=== PATIENT | male | born 1950 | race American Indian/Alaskan Native ===

== ENCOUNTER 2019-12-24 12:43 | Emergency (ER) | payer MEDICARE ==
--- NOTE | 2019-12-24 13:06 | Emergency Department Report ---
HPI - General Chief Complaint: Tube Replacement Time Seen by Provider: 12/24/19 12:57 - HPI HPI: This is a 69-year-old male who presents to the emergency department via EMS from home with complaint of the tracheostomy starting to come out. Patient has a history of throat cancer and hypertension. He is a former smoker. The patient is also a very bad historian. When asked about the size of his tracheostomy or how long it has been "coming out", the patient says "I do not know." He has never been to this facility previously. He denies fever, chest pain, shortness of breath, back pain. ED Past Medical Hx - Medications Home Medications: Home Medications Medication Instructions Recorded Confirmed Last Taken Type Sulfamethoxazole/Trimethoprim 1 each PO BID #14 tablet 12/24/19 Unknown Rx [Bactrim DS TAB] ED Review of Systems ROS: Stated complaint: TRACH PULLED OUT Other details as noted in HPI Comment: All other systems reviewed and negative ENT: other (tracheostomy coming out) Respiratory: denies: shortness of breath, wheezing Cardiovascular: denies: chest pain, palpitations Gastrointestinal: denies: abdominal pain, vomiting Neurological: denies: headache Physical Exam - Physical Exam Physical Exam: GENERAL: The patient is well-developed well-nourished. HENT: Normocephalic. Atraumatic. Patient has moist mucous membranes. EYES: Extraocular motions are intact. NECK: Supple. Trachea is midline. The tracheostomy has started to dislodge. CHEST/LUNGS: Clear to auscultation. There is no respiratory distress noted. HEART/CARDIOVASCULAR: Regular. There is no tachycardia. ABDOMEN: Abdomen is soft, nontender. Patient has normal bowel sounds. SKIN: Skin is warm and dry. NEURO: The patient is awake, alert, and oriented. The patient is cooperative. MUSCULOSKELETAL: There is no tenderness or deformity. ED Medical Decision Making - Radiology Data Radiology results: report reviewed CHEST 1 VIEW INDICATION / CLINICAL INFORMATION: trach placement. COMPARISON: None available. FINDINGS: SUPPORT DEVICES: Satisfactory position/appearance of the tracheostomy tube. HEART / MEDIASTINUM: No significant abnormality. LUNGS / PLEURA: Mild, chronic appearing interstitial changes. No significant pulmonary or parenchymal abnormality. No pneumothorax. ADDITIONAL FINDINGS: No significant additional findings. IMPRESSION: 1. No acute findings. 2. Satisfactory appearance of the tracheostomy tube. - Medical Decision Making This patient initially came in with a complaint that the tracheostomy tube has come out, or is coming out. Upon arrival the patient appears to have some mild dislodgment of the tracheostomy tube that is out about 1 inch from the stoma. We were able to get the tracheostomy tube flush against the stoma and tighten the trach collar. Chest x-ray shows appropriate placement of the tracheostomy tube and it does not show any pneumonia, pleural effusions, pneumothorax. The patient's vital signs have been reassuring throughout his ED course including being afebrile and no hypoxia. The inner cannula was cleaned by respiratory therapy but was malodorous with some concern that the patient could be developing a stoma infection. He will be placed on antibiotics and instructed to follow-up with primary care and/or otolaryngology. Critical Care Time: No Critical care attestation.: If time is entered above; I have spent that time in minutes in the direct care of this critically ill patient, excluding procedure time. ED Disposition Clinical Impression: Tracheostomy care, Tracheostomy, acute management Disposition: DC-01 TO HOME OR SELFCARE Is pt being admited?: No Condition: Stable Instructions: Tracheostomy Care (ED) Additional Instructions: Please follow-up with your primary care physician in the next few days. Return to the emergency department with any worsening of your symptoms, new or concerning symptoms not addressed during this current emergency department visit, or with any acute distress. Prescriptions: Sulfamethoxazole/Trimethoprim [Bactrim DS TAB] 1 each PO BID #14 tablet Referrals: PRIMARY CARE [Primary Care Provider] - 2-3 Days Time of Disposition: 14:40
--- NOTE | 2019-12-24 14:38 | XRay Report ---
CHEST 1 VIEW INDICATION / CLINICAL INFORMATION: trach placement. COMPARISON: None available. FINDINGS: SUPPORT DEVICES: Satisfactory position/appearance of the tracheostomy tube. HEART / MEDIASTINUM: No significant abnormality. LUNGS / PLEURA: Mild, chronic appearing interstitial changes. No significant pulmonary or parenchymal abnormality. No pneumothorax. ADDITIONAL FINDINGS: No significant additional findings. IMPRESSION: 1. No acute findings. 2. Satisfactory appearance of the tracheostomy tube. Signer Name: Zheng Be MD Signed: 12/24/2019 2:34 PM Workstation Name: [id number]
[2019-12-24 20:37] VITALS: BP 123/69
== END 2019-12-24 21:10 | disposition home or self-care (01) ==
LOC: ED 12:43
DX: J95.03 Malfunction of tracheostomy stoma (principal); Z87.891 Personal history of nicotine dependence
CPT/HCPCS: 71045